=== PATIENT | female | born 1965 | race African-American/Black ===

== ENCOUNTER 2022-08-10 09:31 | Emergency (ER) | payer MEDICAID, OTHER ==
[~2022-08-10] VITALS: Ht 170.2 cm; Wt 89.0 kg
[~2022-08-10 09:31] MED LIST: AMLO10TA80 PO; ENAL2.5T17 MT; LOSA100T3 PO
[2022-08-10] MEDS ORDERED: ASPIRIN 81MG TABLET PO ONE (16:45)
[2022-08-10] MEDS ORDERED: KETOROLAC 60MG/2ML VIAL IM ONE (16:45)
[2022-08-10] MEDS ORDERED: NITROGLYCERIN 0.4MG TABLET SL SL PRN (16:45)
[2022-08-10 17:42] LABS: BASOPHILS % 0.3 % (0.0-2.0); HEMATOCRIT. 39.1 % (36.0-48.0); HEMOGLOBIN. 12.8 g/dL (12.0-16.0); LYMPHOCYTES % 41.8 % (20.0-50.0); MEAN CORPUSCULAR HEMOGLOBIN 27.3 pg (28.0-32.0); MEAN CORPUSCULAR VOLUME 83.3 fL (81.0-99.0); MEAN PLATELET VOLUME 9.9 fl (7.4-10.4); MONOCYTES % 7.6 % (2.0-8.0); NEUTROPHILS % 49.3 % (40.0-76.0); PLATELET 127 x1000/uL (130-400); RED CELL DISTRIBUTION WIDTH 16.3 % (11.6-14.6)
[2022-08-10 17:44] LABS: CHLORIDE 105 mEq/L (98-107)
[2022-08-10] MEDS ORDERED: IBUP-2028 MT (18:01)
[2022-08-10 22:13] VITALS: BP 147/70
== END 2022-08-10 22:19 | disposition home or self-care (01) ==
LOC: ER 09:31
DX: R07.89 Other chest pain (principal); I10 Essential (primary) hypertension; Z88.1 Allergy status to other antibiotic agents
CPT/HCPCS: 36415; 71045; 80053; 84484; 85025; 93005; 96372; 99285; J1885; Z7610

== ENCOUNTER 2023-03-01 06:43 | Emergency (ER) | payer OTHER ==
[~2023-03-01] VITALS: Ht 157.5 cm; Wt 72.5 kg
[~2023-03-01 06:43] MED LIST changes: +IBUP-2028 MT; -LOSA100T3 PO; +LOSA100T4 PO
[2023-03-01 07:23] LABS: BASOPHILS % 0.3 % (0.0-2.0); HEMATOCRIT. 38.4 % (36.0-48.0); HEMOGLOBIN. 12.9 g/dL (12.0-16.0); LYMPHOCYTES % 41.3 % (20.0-50.0); MEAN CORPUSCULAR HEMOGLOBIN 27.7 pg (28.0-32.0); MEAN CORPUSCULAR VOLUME 82.6 fL (81.0-99.0); MEAN PLATELET VOLUME 9.2 fl (7.4-10.4); MONOCYTES % 7.8 % (2.0-8.0); NEUTROPHILS % 48.6 % (40.0-76.0); PLATELET 255 x1000/uL (130-400); RED BLOOD CELL COUNT 4.65 mill/uL (4.2-5.4); RED CELL DISTRIBUTION WIDTH 15.9 % (11.6-14.6)
[2023-03-01 07:29] LABS: CHLORIDE 109 mEq/L (98-107)
[2023-03-01 07:53] LABS: HCG SCREEN NEGATIVE
[2023-03-01] MEDS ORDERED: IBUP-2028 PO (09:59)
[2023-03-01 10:24] VITALS: BP 161/83
== END 2023-03-01 10:27 | disposition home or self-care (01) ==
LOC: ER 06:43
DX: R07.89 Other chest pain (principal); I10 Essential (primary) hypertension; Z98.890 Other specified postprocedural states; Z79.899 Other long term (current) drug therapy
CPT/HCPCS: 36415; 71045; 80053; 84484; 84703; 85025; 93005; 99285; Z7610

== ENCOUNTER 2023-06-04 22:33 | Emergency (ER) | payer OTHER ==
[~2023-06-04] VITALS: Ht 157.5 cm; Wt 70.9 kg
[~2023-06-04 22:33] MED LIST changes: +IBUP-2028 PO
[2023-06-04 22:40] VITALS: O2SAT 100
[2023-06-05] MEDS ORDERED: KETOROLAC 15MG/ML VIAL IM ONE (00:30)
[2023-06-05] MEDS ORDERED: CYCL10TA21 MT (00:59)
[2023-06-05] MEDS ORDERED: NAPR-1176 MT (00:59)
[2023-06-05 01:38] VITALS: BP 161/61
[2023-06-05 02:02] VITALS: PULSE 67; RESP 16; TEMP 98
== END 2023-06-05 02:03 | disposition home or self-care (01) ==
LOC: ER 22:33
DX: M54.12 Radiculopathy, cervical region (principal); I10 Essential (primary) hypertension; Z88.1 Allergy status to other antibiotic agents
CPT/HCPCS: 99283; 93005; 96372; J1885

== ENCOUNTER 2024-12-07 23:20 | Emergency (ER) | payer MEDICAID, OTHER ==
[~2024-12-07] VITALS: Ht 157.5 cm; Wt 73.0 kg
[~2024-12-07 23:20] MED LIST changes: +CYCL10TA21 MT; -ENAL2.5T17 MT; +ENAL2.5T69 MT; +LOSA-415 PO; -LOSA100T4 PO; +NAPR-1176 MT
[2024-12-07 23:34] VITALS: O2SAT 98
[2024-12-08] MEDS ORDERED: CARB100T12 MT (00:52)
[2024-12-08] MEDS: CARBAMAZEPINE 100MG TABLET CHEW PO ONE (01:18)
[2024-12-08] MEDS: IBUPROFEN 400MG TABLET PO ONE (01:18)
[2024-12-08 01:28] VITALS: BP 172/76; PULSE 64; RESP 16; TEMP 37; O2SAT 98
== END 2024-12-08 01:28 | disposition home or self-care (01) ==
LOC: ER 23:20
DX: R51.9 Headache, unspecified (principal); I10 Essential (primary) hypertension; Z88.1 Allergy status to other antibiotic agents; Z79.899 Other long term (current) drug therapy
CPT/HCPCS: 99283